=== PATIENT | female | born 1980 | race Caucasian/White ===

== ENCOUNTER 2024-06-25 11:57 | Emergency (ER) | payer OTHER ==
[2024-06-25 12:27] VITALS: BP 129/44; PULSE 68; RESP 16; TEMP 98.6; BMI 27.3
[2024-06-25] MEDS ORDERED: IBUPROFEN 600 MG TABLET (FP) PO ONE (13:40)
[2024-06-25] MEDS ORDERED: ACETAMINOPHEN 500 MG TABLET (FP) ONE (13:40)
[2024-06-25] MEDS: IBUPROFEN 600 MG TABLET (FP) PO ONE (13:42)
[2024-06-25] MEDS: ACETAMINOPHEN 500 MG TABLET (FP) PO ONE (13:42)
[2024-06-25] MEDS ORDERED: oxyCODONE HCL 5 MG TABLET ONE (14:38)
[2024-06-25] MEDS: oxyCODONE HCL 5 MG TABLET PO ONE (14:45)
== END 2024-06-25 15:00 | disposition home or self-care (01) ==
LOC: JERFT 11:57
DX: S93.401A Sprain of unspecified ligament of right ankle, initial encounter (principal); X50.1XXA Overexertion from prolonged static or awkward postures, initial encounter
CPT/HCPCS: 73610-TC-RT-FY; 99283-25